=== PATIENT | female | born 1985 ===

== ENCOUNTER 2017-04-30 12:21 | Emergency (ER) | payer OTHER ==
[2017-04-30 12:41] VITALS: BP 131/90; PULSE 77; RESP 20; TEMP 97.9; O2SAT 100
[2017-04-30] MEDS ORDERED: ACETAMINOPHEN 500 MG 500 MG TAB PO ONE (13:42)
[2017-04-30] MEDS ORDERED: ACETAMINOPHEN 500 MG 500 MG TAB ONE (13:44)
== END 2017-04-30 16:30 | disposition home or self-care (01) | DRG 563 ==
LOC: ED 12:21
DX: S39.012A Strain of muscle, fascia and tendon of lower back, initial encounter (principal); R40.2142 Coma scale, eyes open, spontaneous, at arrival to emergency department; V43.62XA Car passenger injured in collision with other type car in traffic accident, initial encounter; R40.2362 Coma scale, best motor response, obeys commands, at arrival to emergency department; R40.2252 Coma scale, best verbal response, oriented, at arrival to emergency department
CPT/HCPCS: 72128; 99283

== ENCOUNTER 2017-08-17 05:55 | Emergency (ER) | payer OTHER ==
[2017-08-17 06:15] VITALS: RESP 20; TEMP 97
[2017-08-17] MEDS ORDERED: [UNRECOGNIZED DRUG - OTHER] IM ONE (06:48)
[2017-08-17] MEDS: METRONIDAZOLE 250 MG TAB PO ONE ×2 (06:48→09:15)
[2017-08-17] MEDS ORDERED: HEPATITIS B VACCINE IM ONE (06:48)
[2017-08-17] MEDS: LEVONORGESTREL 1.5 MG TAB PO ONE ×2 (06:48→09:15)
[2017-08-17] MEDS: CEFTRIAXONE 1 GM PDS IM ONE ×2 (06:48→09:15)
[2017-08-17] MEDS ORDERED: ONDANSETRON 4 MG ODT BU ONE (06:48)
[2017-08-17] MEDS: AZITHROMYCIN 250 MG TAB PO ONE ×2 (06:48→09:15)
[2017-08-17] MEDS ORDERED: METRONIDAZOLE 250 MG TAB ONE ×2 (06:55→07:01)
[2017-08-17] MEDS ORDERED: AZITHROMYCIN 250 MG TAB ONE (06:56)
[2017-08-17] MEDS ORDERED: ONDANSETRON 4 MG ODT ONE (06:57)
[2017-08-17] MEDS ORDERED: CEFTRIAXONE 1 GM PDS ONE (06:58)
[2017-08-17] MEDS ORDERED: ACETAMINOPHEN 325 MG PO ONE (07:37)
[2017-08-17] MEDS ORDERED: ACETAMINOPHEN 325 MG ONE (07:41)
[2017-08-17 07:46] LABS: AMPHETAMINES NEGATIVE (NEGATIVE); BARBITUATES NEGATIVE (NEGATIVE); BENZODIAZEPINES NEGATIVE (NEGATIVE); CANNABINOL(THC) NEGATIVE (NEGATIVE); COCAINE(COC) NEGATIVE (NEGATIVE); METHADONE NEGATIVE (NEGATIVE); METHAMPHETAMINES NEGATIVE (NEGATIVE); OPIATES(OP13) NEGATIVE (NEGATIVE); OXYCODONE(OXY) NEGATIVE (NEGATIVE); PROPOXYPHENE(PPX) NEGATIVE (NEGATIVE); TRICYCLIC ANTIDEPRESSANTS NEGATIVE (NEGATIVE)
[2017-08-17] MEDS ORDERED: LIDOCAINE HCL 1% MPF 30 SOL ONE (08:40)
[2017-08-17] MEDS ORDERED: TDAP VACCINE 0.5 ML SUS IM ONE ×2 (08:51→08:57)
[2017-08-17] MEDS ORDERED: MORPHINE SULFATE 10 MG/ML SOL IV ONE (09:40)
[2017-08-17] MEDS ORDERED: MORPHINE SULFATE 10 MG/ML SOL ONE (09:50)
[2017-08-17 09:57] LABS: HEMATOCRIT 34 % (35-47); HEMOGLOBIN 10.1 gm/dl (12.0-15.5); MEAN CORPUSCULAR HEMOGLOBIN 18.9 pg (27.0-32.0); MEAN CORPUSCULAR HGB CONC 29.7 gm/dl (32.0-36.0)
[2017-08-17 10:02] LABS: ALBUMIN 3.4 gm/dl (3.4-5.0); BILIRUBIN,TOTAL 0.1 mg/dl (0.2-1.0); CALCIUM 8.4 mg/dl (8.5-10.1); CARBON DIOXIDE 23.6 mEq/L (21-32); CREATININE 0.54 mg/dl (0.60-1.00); POTASSIUM 3.4 mMol/L (3.5-5.1)
[2017-08-17 10:31] LABS: MEAN CORPUSCULAR VOLUME 64 fL (81-99)
[2017-08-17 10:32] LABS: ANISOCYTOSIS MOD AMT
[2017-08-17 10:48] LABS: APPEARANCE,URINE Clear; BILIRUBIN,URINE NEGATIVE (NEGATIVE); COLOR,URINE Yellow; GLUCOSE, URINE (UA) NEGATIVE (NEGATIVE); KETONES,URINE NEGATIVE (NEGATIVE); LEUKOCYTE ESTERASE ,URINE NEGATIVE (NEGATIVE); NITRATE,URINE NEGATIVE (NEGATIVE); OCCULT BLOOD,URINE TRACE LYSED (NEG-TRACE); UROBILINOGEN,URINE 0.2 (0.2-1.0 EU)
[2017-08-17 10:57] LABS: RBC,URINE NEG (0-3AV/HPF)
[2017-08-17 10:58] LABS: BACTERIA 1+ (< 1+); CRYSTALS NEGATIVE (0-3 AVE/HPF); EPITHELIAL CELLS 101-15 (SQUAMOUS)
[2017-08-17] MEDS ORDERED: SODIUM CHLORIDE 0.9% 1000ML 1,000 ML IV ONE (11:03)
[2017-08-17 11:23] VITALS: PULSE 86; O2SAT 100
[2017-08-17 13:34] VITALS: BP 116/81
== END 2017-08-17 13:15 | disposition home or self-care (01) | DRG 923 ==
LOC: ED 05:55
DX: T76.21XA Adult sexual abuse, suspected, initial encounter (principal); R10.32 Left lower quadrant pain; T23.121A Burn of first degree of single right finger (nail) except thumb, initial encounter; F10.129 Alcohol abuse with intoxication, unspecified; Y90.6 Blood alcohol level of 120-199 mg/100 ml
CPT/HCPCS: 36415; 80053; 80305; 80307; 81001; 84703; 85025; 87088; 90471; 90715; 96365; 96372; 96374; 99284; 99285; J0696; J2270; A9270-GY; J2001

== ENCOUNTER 2018-06-30 23:55 | Observation (INO) | payer OTHER ==
[2018-07-01 00:54] VITALS: O2SAT 99
[2018-07-01] MEDS: LACTATED RINGERS 1,000 ML IV SCH ×2 (01:22→03:26)
[2018-07-01] MEDS ORDERED: SODIUM CHLORIDE 0.9% FLUSH 10 ML SOL IV SCH (02:00)
[2018-07-01] MEDS ORDERED: LACTATED RINGERS 1,000 ML IV PRN (02:00)
[2018-07-01] MEDS ORDERED: OXYTOCIN 10000 MU/ML SOL IM PRN (02:00)
[2018-07-01] MEDS ORDERED: FENTANYL 100MCG/2ML SOL IV PRN (02:00)
[2018-07-01] MEDS ORDERED: SODIUM CHLORIDE 0.9% FLUSH 10 ML SOL IV PRN (02:00)
[2018-07-01] MEDS ORDERED: MEPIVACAINE HCL 1% MPF 30 ML/VIAL SOL INFIL PRN (02:00)
[2018-07-01] MEDS ORDERED: CARBOPROST 250 MCG/ML SOL IM PRN (02:00)
[2018-07-01] MEDS ORDERED: METHYLERGONOVINE MALEATE 0.2 MG/ML SOL IM PRN (02:00)
[2018-07-01 07:25] LABS: APPEARANCE,URINE Clear; BILIRUBIN,URINE NEGATIVE (NEGATIVE); COLOR,URINE Yellow; GLUCOSE, URINE (UA) NEGATIVE (NEGATIVE); KETONES,URINE 1+ (NEGATIVE); LEUKOCYTE ESTERASE ,URINE NEGATIVE (NEGATIVE); NITRATE,URINE NEGATIVE (NEGATIVE); OCCULT BLOOD,URINE NEGATIVE (NEG-TRACE); PH,URINE 6.5; UROBILINOGEN,URINE 0.2 (0.2-1.0 EU)
[2018-07-01 07:43] LABS: CRYSTALS NEGATIVE (0-3 AVE/HPF); EPITHELIAL CELLS 0-1 (SQUAMOUS); WBC,URINE 0-1 (0-5AV/HPF)
[2018-07-01 07:44] LABS: BACTERIA TRACE (< 1+); RBC,URINE NEGATIVE (0-3AV/HPF)
[2018-07-01] MEDS ORDERED: LACTATED RINGERS 1,000 ML IV ONE (08:00)
[2018-07-01 08:16] VITALS: BP 111/71; PULSE 78; RESP 16; TEMP 97.5
== END 2018-07-01 12:00 | disposition home or self-care (01) ==
LOC: ED 23:55 → OB 07-01 00:45
PROVIDERS: ADMIT Family Medicine; ATTEND Family Medicine
DX: O47.03 False labor before 37 completed weeks of gestation, third trimester (principal); Z3A.36 36 weeks gestation of pregnancy
CPT/HCPCS: 59025; 81001; 99218; 99283

== ENCOUNTER 2018-07-05 01:06 | Emergency (ER) | payer OTHER ==
[2018-07-05 02:36] VITALS: RESP 14; TEMP 98
[2018-07-05 02:38] VITALS: BP 128/88; PULSE 86; O2SAT 97
== END 2018-07-05 02:16 | disposition home or self-care (01) ==
LOC: ED 01:06
DX: O47.03 False labor before 37 completed weeks of gestation, third trimester (principal); Z3A.36 36 weeks gestation of pregnancy
CPT/HCPCS: 59025; 84112; 99282; 99283

== ENCOUNTER 2018-07-06 19:35 | Observation (INO) | payer OTHER ==
[2018-07-06] MEDS ORDERED: LACTATED RINGERS 1,000 ML IV ONE (21:00)
[2018-07-06] MEDS: SODIUM CHLORIDE 0.9% FLUSH 10 ML SOL IV SCH (21:30)
[2018-07-06] MEDS ORDERED: MEPIVACAINE HCL 1% MPF 30 ML/VIAL SOL INFIL PRN (22:40)
[2018-07-06] MEDS ORDERED: OXYTOCIN 10000 MU/ML SOL IM PRN (22:40)
[2018-07-06] MEDS ORDERED: METHYLERGONOVINE MALEATE 0.2 MG/ML SOL IM PRN (22:40)
[2018-07-06] MEDS ORDERED: FENTANYL 100MCG/2ML SOL IV PRN (22:40)
[2018-07-06] MEDS ORDERED: CARBOPROST 250 MCG/ML SOL IM PRN (22:40)
[2018-07-06] MEDS ORDERED: SODIUM CHLORIDE 0.9% FLUSH 10 ML SOL IV PRN (22:40)
[2018-07-06] MEDS ORDERED: LACTATED RINGERS 1,000 ML IV PRN (22:40)
[2018-07-06] MEDS ORDERED: ZOLPIDEM TARTRATE 5 MG TAB PO PRN (22:56)
[2018-07-06 23:23] LABS: APPEARANCE,URINE Clear; BILIRUBIN,URINE NEGATIVE (NEGATIVE); COLOR,URINE Yellow; GLUCOSE, URINE (UA) NEGATIVE (NEGATIVE); KETONES,URINE NEGATIVE (NEGATIVE); LEUKOCYTE ESTERASE ,URINE NEGATIVE (NEGATIVE); NITRATE,URINE NEGATIVE (NEGATIVE); OCCULT BLOOD,URINE NEGATIVE (NEG-TRACE); UROBILINOGEN,URINE 0.2 (0.2-1.0 EU)
[2018-07-06 23:38] LABS: BACTERIA TRACE (< 1+); CRYSTALS NEGATIVE (0-3 AVE/HPF); EPITHELIAL CELLS 0-1 (SQUAMOUS); RBC,URINE 0-2 (0-3AV/HPF); WBC,URINE 0-1 (0-5AV/HPF)
[2018-07-07 01:19] VITALS: O2SAT 98
[2018-07-07] MEDS: SODIUM CHLORIDE 0.9% FLUSH 10 ML SOL IV SCH (06:21)
[2018-07-07 10:18] VITALS: BP 118/75; PULSE 113; RESP 18; TEMP 97.1
== END 2018-07-07 10:15 | disposition home or self-care (01) ==
LOC: OB 19:35
PROVIDERS: ADMIT Family Medicine; ATTEND Family Medicine
DX: O47.1 False labor at or after 37 completed weeks of gestation (principal); Z3A.37 37 weeks gestation of pregnancy
CPT/HCPCS: 59025; 81001; A9270-GY

== ENCOUNTER 2018-07-15 23:55 | Inpatient (IN) | payer OTHER ==
[2018-07-16] MEDS: SODIUM CHLORIDE 0.9% FLUSH 10 ML SOL IV SCH ×3 (01:11→17:57)
[2018-07-16] MEDS ORDERED: OXYTOCIN 10000 MU/ML SOL IM PRN (01:32)
[2018-07-16] MEDS ORDERED: FENTANYL 100MCG/2ML SOL IV PRN (01:32)
[2018-07-16] MEDS ORDERED: CARBOPROST 250 MCG/ML SOL IM PRN (01:32)
[2018-07-16] MEDS ORDERED: MEPIVACAINE HCL 1% MPF 30 ML/VIAL SOL INFIL PRN (01:32)
[2018-07-16] MEDS ORDERED: METHYLERGONOVINE MALEATE 0.2 MG/ML SOL IM PRN (01:32)
[2018-07-16] MEDS ORDERED: LACTATED RINGERS 1,000 ML IV PRN (01:32)
[2018-07-16] MEDS ORDERED: SODIUM CHLORIDE 0.9% FLUSH 10 ML SOL IV PRN (01:32)
[2018-07-16 01:50] LABS: BASOPHILS % (AUTO) 1 % (0-3); EOSINOPHILS % (AUTO) 3 % (0-9); HEMATOCRIT 35 % (35-47); HEMOGLOBIN 10.5 gm/dl (12.0-15.5); LYMPHOCYTES % (AUTO) 22.6 % (10-50); MEAN CORPUSCULAR HEMOGLOBIN 22.8 pg (27.0-32.0); MEAN CORPUSCULAR HGB CONC 30.1 gm/dl (32.0-36.0); MONOCYTES % (AUTO) 6.1 % (0-12); NEUTROPHILS % (AUTO) 67.5 % (37-80)
[2018-07-16 02:13] LABS: ANISOCYTOSIS MOD AMT; MEAN CORPUSCULAR VOLUME 76 fL (81-99)
[2018-07-16] MEDS ORDERED: TERBUTALINE SULFATE 1 MG/ML SOL SC PRN (17:13)
[2018-07-16] MEDS ORDERED: OXYTOCIN 10000 MU/ML 20,000 MU in LACTATED RINGERS 1,000 ML IV SCH (17:15)
[2018-07-16] MEDS ORDERED: LACTATED RINGERS 1,000 ML IV SCH ×2 (17:15→21:15)
[2018-07-16] MEDS ORDERED: LIDOCAINE 1% W/EPI MPF 30 ML SOL ONE (21:05)
[2018-07-16] MEDS ORDERED: NALOXONE HYDROCHLORIDE 0.4 MG/ML SOL IV PRN (21:06)
[2018-07-16] MEDS ORDERED: NALBUPHINE HCL 20 MG/ML SOL IV PRN (21:06)
[2018-07-16] MEDS ORDERED: EPHEDRINE SULFATE 50 MG/ML SOL IV PRN (21:06)
[2018-07-16] MEDS: LACTATED RINGERS 1,000 ML IV SCH ×2 (21:06→21:27)
[2018-07-16] MEDS ORDERED: DIPHENHYDRAMINE 50 MG/ML SOL IV PRN (21:06)
[2018-07-16] MEDS ORDERED: MISOPROSTOL 100 MCG TAB PR ONE (22:56)
[2018-07-16 23:44] LABS: ABO O; ANTIBODY SCREEN Negative; RH TYPE Positive; UNIT TYPE O POSITIVE
[2018-07-17 00:11] LABS: UNIT TYPE O POSITIVE
[2018-07-17 00:12] LABS: UNIT TYPE O POSITIVE
[2018-07-17] MEDS ORDERED: BENZOCAINE/MENTHOL 1 SPR TOP PRN (00:26)
[2018-07-17] MEDS ORDERED: METHYLERGONOVINE MALEATE 0.2 MG TAB PO PRN (00:26)
[2018-07-17] MEDS ORDERED: BISACODYL 10 MG SUP PR PRN (00:26)
[2018-07-17] MEDS ORDERED: WITCH HAZEL 1 EA PAD TOP PRN (00:26)
[2018-07-17] MEDS ORDERED: TEMAZEPAM 15MG 15 MG CAP PO PRN (00:26)
[2018-07-17] MEDS ORDERED: IBUPROFEN 600 MG TAB PO PRN (00:26)
[2018-07-17] MEDS ORDERED: FLEET ENEMA PR PRN (00:26)
[2018-07-17] MEDS ORDERED: SODIUM CHLORIDE 0.9% 1000ML 1,000 ML IV SCH (01:15)
[2018-07-17] MEDS: SODIUM CHLORIDE 0.9% FLUSH 10 ML SOL IV SCH ×4 (02:28→21:12)
[2018-07-17] MEDS: DOCUSATE SODIUM 100 MG SGL PO SCH ×2 (08:30→21:10)
[2018-07-17] MEDS ORDERED: ACETAMINOPHEN 500 MG 500 MG TAB PO PRN (16:52)
[2018-07-17] MEDS ORDERED: ACETAMINOPHEN 500 MG 500 MG TAB ONE (16:53)
[2018-07-17] MEDS ORDERED: DOCUSATE SODIUM 100 MG SGL ONE ×2 (16:53→20:54)
[2018-07-17] MEDS ORDERED: APAP/HYDROCODONE 1 EACH TABLET ONE (23:28)
[2018-07-17] MEDS: APAP/HYDROCODONE 1 EACH TABLET PO PRN (23:29)
[2018-07-18] MEDS: SODIUM CHLORIDE 0.9% FLUSH 10 ML SOL IV SCH ×3 (04:01→17:17)
[2018-07-18] MEDS: APAP/HYDROCODONE 1 EACH TABLET PO PRN ×5 (06:35→21:43)
[2018-07-18] MEDS ORDERED: FERROUS GLUCONATE 324 MG TABLET ONE (08:58)
[2018-07-18] MEDS ORDERED: DOCUSATE SODIUM 100 MG SGL ONE (08:58)
[2018-07-18] MEDS: FERROUS GLUCONATE 324 MG TABLET PO SCH ×2 (09:30→09:36)
[2018-07-18] MEDS: DOCUSATE SODIUM 100 MG SGL PO SCH ×2 (09:30→21:42)
[2018-07-19] MEDS: APAP/HYDROCODONE 1 EACH TABLET PO PRN ×5 (02:30→22:11)
[2018-07-19] MEDS: SODIUM CHLORIDE 0.9% FLUSH 10 ML SOL IV SCH ×3 (02:30→17:11)
[2018-07-19 07:48] LABS: ALBUMIN 2.1 gm/dl (3.4-5.0); BILIRUBIN,TOTAL 0.2 mg/dl (0.2-1.0); CALCIUM 7.7 mg/dl (8.5-10.1); CARBON DIOXIDE 26.3 mEq/L (21-32); CREATININE 0.48 mg/dl (0.60-1.00); POTASSIUM 3.8 mMol/L (3.5-5.1); TOTAL PROTEIN 5.1 gm/dl (6.4-8.2)
[2018-07-19 07:58] LABS: HEMOGLOBIN 7.4 gm/dl (12.0-15.5)
[2018-07-19 07:59] LABS: BASOPHILS % (AUTO) 1 % (0-3); EOSINOPHILS % (AUTO) 3 % (0-9); HEMATOCRIT 23 % (35-47); LYMPHOCYTES % (AUTO) 30.8 % (10-50); MEAN CORPUSCULAR HEMOGLOBIN 25.3 pg (27.0-32.0); MEAN CORPUSCULAR HGB CONC 31.8 gm/dl (32.0-36.0); MEAN CORPUSCULAR VOLUME 79 fL (81-99); MONOCYTES % (AUTO) 5.9 % (0-12); NEUTROPHILS % (AUTO) 58.7 % (37-80); POIKILOCYTOSIS SLIGHT AMT
[2018-07-19 08:00] LABS: ANISOCYTOSIS MOD AMT; OVALOCYTES PRESENT
[2018-07-19] MEDS: DOCUSATE SODIUM 100 MG SGL PO SCH ×2 (09:41→21:32)
[2018-07-19] MEDS: FERROUS GLUCONATE 324 MG TABLET PO SCH ×2 (09:41→21:32)
[2018-07-19 10:12] LABS: APPEARANCE,URINE Clear; BILIRUBIN,URINE NEGATIVE (NEGATIVE); COLOR,URINE Light yellow; GLUCOSE, URINE (UA) NEGATIVE (NEGATIVE); KETONES,URINE NEGATIVE (NEGATIVE); LEUKOCYTE ESTERASE ,URINE 1+ (NEGATIVE); NITRATE,URINE NEGATIVE (NEGATIVE); OCCULT BLOOD,URINE 2+ (NEG-TRACE); UROBILINOGEN,URINE 0.2 (0.2-1.0 EU)
[2018-07-19 10:47] LABS: BACTERIA RARE (< 1+); CRYSTALS NEGATIVE (0-3 AVE/HPF); EPITHELIAL CELLS NEGATIVE (SQUAMOUS); RBC,URINE NEG (0-3AV/HPF); WBC,URINE NEG (0-5AV/HPF)
[2018-07-20] MEDS: SODIUM CHLORIDE 0.9% FLUSH 10 ML SOL IV SCH ×3 (02:31→18:21)
[2018-07-20] MEDS: APAP/HYDROCODONE 1 EACH TABLET PO PRN ×4 (03:36→19:14)
[2018-07-20] MEDS: DOCUSATE SODIUM 100 MG SGL PO SCH ×2 (08:18→20:22)
[2018-07-20] MEDS: FERROUS GLUCONATE 324 MG TABLET PO SCH ×2 (08:18→20:22)
[2018-07-20 14:53] LABS: ABO O; ANTIBODY SCREEN Negative; RH TYPE Positive; UNIT TYPE O POSITIVE
[2018-07-20 14:54] LABS: UNIT TYPE O POSITIVE
[2018-07-20 20:42] VITALS: RESP 18
[2018-07-21] MEDS: APAP/HYDROCODONE 1 EACH TABLET PO PRN ×2 (00:58→06:46)
[2018-07-21] MEDS: FERROUS GLUCONATE 324 MG TABLET PO SCH (08:35)
[2018-07-21] MEDS: DOCUSATE SODIUM 100 MG SGL PO SCH (08:35)
[2018-07-21 11:06] VITALS: BP 114/68; PULSE 62; TEMP 97.8; O2SAT 98
== END 2018-07-21 12:35 | disposition home or self-care (01) | DRG 541 ==
LOC: OBSVTOIN 23:55 → OB 23:55
PROVIDERS: ADMIT Family Medicine; ATTEND Family Medicine
PROC: [UNRECOGNIZED PROCEDURE] (2018-07-16)
PROC: 10907ZC Drainage of Amniotic Fluid, Therapeutic from Products of Conception, Via Natural or Artificial Opening (ICD-10-PCS; 2018-07-16)
PROC: 0W3R3ZZ Control Bleeding in Genitourinary Tract, Percutaneous Approach (ICD-10-PCS; 2018-07-16)
PROC: 3E033VJ Introduction of Other Hormone into Peripheral Vein, Percutaneous Approach (ICD-10-PCS; 2018-07-16)
PROC: 30233N1 Transfusion of Nonautologous Red Blood Cells into Peripheral Vein, Percutaneous Approach (ICD-10-PCS; 2018-07-16)
PROC: 10D17ZZ Extraction of Products of Conception, Retained, Via Natural or Artificial Opening (ICD-10-PCS; principal; 2018-07-16 12:15)
PROC: 30233N1 Transfusion of Nonautologous Red Blood Cells into Peripheral Vein, Percutaneous Approach (ICD-10-PCS; 2018-07-20)
DX: O72.1 Other immediate postpartum hemorrhage (principal); S37.63XA Laceration of uterus, initial encounter; O63.0 Prolonged first stage (of labor); Z37.0 Single live birth; Z3A.38 38 weeks gestation of pregnancy
CPT/HCPCS: 36415; 59025; 80053; 81001; 85018; 85025; 86850; 86900; 86901; 86920; 87088; 99070; J0670; J2274; J2590; J2795; J3010; P9016; A9270-GY; J3490